=== PATIENT | male | born 1955 | race Caucasian/White ===

== ENCOUNTER 2025-04-05 13:21 | Observation (INO) ==
[2025-04-05] MEDS ORDERED: POTASSIUM CHLORIDE 20 MEQ TABLET PO PRN ×2 (13:25)
[2025-04-05] MEDS ORDERED: DEXTROSE 50% 50 ML VIAL IV PRN (13:25)
[2025-04-05] MEDS ORDERED: ONDANSETRON 4 MG/2 ML VIAL IV PRN (13:25)
[2025-04-05] MEDS ORDERED: ACETAMINOPHEN 325 MG TABLET PO PRN (13:25)
[2025-04-05] MEDS ORDERED: IPRATROPIUM/ALBUTEROL 3 ML AMPUL.NEB NEB PRN (13:25)
[2025-04-05] MEDS ORDERED: POLYETHYLENE GLYCOL 3350 17 GM PACKET PO PRN (13:25)
[2025-04-05] MEDS ORDERED: SENNOSIDES 1 TABLET PO PRN (13:25)
[2025-04-05] MEDS ORDERED: METOCLOPRAMIDE 10 MG/2 ML VIAL IV PRN (13:25)
[2025-04-05] MEDS ORDERED: POTASSIUM CHLORIDE 40 MEQ in DEXTROSE 5% IN WATER 500 ML IV PRN (13:25)
[2025-04-05] MEDS ORDERED: MAGNESIUM SULFATE 2 GM/50 ML BAG IV PRN (13:25)
[2025-04-05] MEDS ORDERED: DEXTROSE 31 GM ORAL.SUSP PO PRN (13:25)
[2025-04-05] MEDS: 0.9 % SODIUM CHLORIDE 1,000 ML IV ONE (17:52)
[2025-04-05] MEDS: INSULIN LISPRO 1 UNIT/0.01 ML UNIT SQ SCH (17:52)
[2025-04-05] MEDS: DOCUSATE SODIUM 100 MG CAPSULE PO SCH (21:45)
[2025-04-06 05:30] LABS: Basophils # (Auto) 0.03 K/mcL (0.00-0.30); Basophils % (Auto) 0.3 % (0.0-2.0); Eosinophils # (Auto) 0.03 K/mcL (0.00-0.70); Eosinophils % (Auto) 0.3 % (0.0-7.0); Hematocrit 42.7 % (40.1-51.0); Hemoglobin 13.7 g/dL (13.7-17.5); Lymphocytes # (Auto) 1.34 K/mcL (1.50-4.80); Lymphocytes % (Auto) 13.1 % (15.5-49.0); Mean Corpuscular HGB Conc 32.1 g/dL (31.0-36.0); Monocytes # (Auto) 1.10 K/mcL (0.10-0.90); Monocytes % (Auto) 10.7 % (1.0-12.0); Neutrophils % (Auto) 75.4 % (38.0-78.0); Platelet Count 226 K/mcL (140-440); RBC 4.54 M/mcL (4.63-6.08); WBC 10.3 K/mcL (4.5-11.0)
[2025-04-06 06:01] LABS: ALT/SGPT 20 U/L (<40); AST/SGOT 16 U/L (<40); Albumin 3.8 gm/dL (3.2-5.2); Albumin/Globulin Ratio 1.7 (1.0-2.3); Alkaline Phosphatase 59 U/L (39-117); Anion Gap 8.0 (8.0-16.0); Bilirubin,Direct 0.3 mg/dL (<0.3); Bilirubin,Total 0.5 mg/dL (0.1-1.0); Blood Urea Nitrogen 21 mg/dL (8-23); Calcium 8.5 mg/dL (8.6-10.4); Carbon Dioxide 25 mmol/L (22-30); Chloride 102 mmol/L (96-108); Globulin 2.2 gm/dL (2.2-3.7); Glucose 184 mg/dL (70-105); Phosphorous 2.2 mg/dL (2.5-4.5); Potassium 4.1 mmol/L (3.3-5.1); Sodium 135 mmol/L (133-145); Triglycerides 91 mg/dL (<150); Uric Acid 5.5 mg/dL (2.5-8.0)
[2025-04-06] MEDS: ENOXAPARIN 40 MG/0.4 ML SYRINGE SQ SCH (09:29)
[2025-04-06 12:06] VITALS: TEMP 97; O2SAT 100
== END 2025-04-06 11:30 | disposition home or self-care (01) ==
LOC: ICU
PROVIDERS: ADMIT Internal Medicine; ATTEND Internal Medicine